=== PATIENT | male | born 1975 | race Caucasian/White ===

== ENCOUNTER 2016-08-05 21:11 | Emergency (ER) | payer OTHER ==
[~2016-08-05] VITALS: Ht 167.6 cm; Wt 77.1 kg
[2016-08-05 21:25] VITALS: BP 132/71; PULSE 90; RESP 18; TEMP 97.4; O2SAT 96
--- NOTE | 2016-08-05 21:52 | NUR ---
Placed in room 05 . Placed on icu rn, blood pressure machine and pulse oximeter. To gown for exam. Side rails up. Report given to CYNTHIA Ervin.
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
--- NOTE | 2016-08-05 22:17 | NUR ---
ER MARISOL Quach at bedside for evaluation
[2016-08-05] MEDS ORDERED: CYCLOBENZAPRINE HCL 10 MG TABLET (FLEXERIL) PO ONE (22:30)
[2016-08-05] MEDS ORDERED: KETOROLAC TROMETHAMINE 60 MG/2 ML VIAL IM ONE (22:30)
--- NOTE | 2016-08-05 22:41 | NUR ---
Patient off the unit for CT scan via wheelchair
[2016-08-05] MEDS ORDERED: HYDROmorphone 1 MG INJ. 1 MG/ML AMPUL IM ONE (23:15)
[2016-08-05] MEDS ORDERED: DIPHENHYDRAMINE INJ 50 MG/ML VIAL IM ONE (23:15)
--- NOTE | 2016-08-05 23:39 | NUR ---
Patient C/O persisting pain 01/08 and tension upper back & shoulders.
--- NOTE | 2016-08-06 00:09 | NUR ---
Patient states that he feels much better, decrease in muscle tension" Patient educated on home care.
[2016-08-06 00:25] VITALS: BP 122/71; PULSE 82; RESP 17; TEMP 98.1; O2SAT 96
--- NOTE | 2016-08-06 00:25 | NUR ---
Patient given written and verbal discharge instructions and verbalizes understanding. ER MANAGER RN CASE Philomena discussed with patient the results and treatment provided. Patient in stable condition. ID arm band removed. Rx of tramadol, motrin, flexeril given. Patient educated on pain management and to follow up with PMD. Pain Scale 0/10. Opportunity for questions provided and answered.
== END 2016-08-06 00:25 | disposition home or self-care (01) ==
LOC: SED 21:11
DX: S16.1XXA Strain of muscle, fascia and tendon at neck level, initial encounter (principal); I10 Essential (primary) hypertension; E11.9 Type 2 diabetes mellitus without complications; E78.5 Hyperlipidemia, unspecified; I25.2 Old myocardial infarction; Z90.49 Acquired absence of other specified parts of digestive tract; Z98.890 Other specified postprocedural states; Z95.1 Presence of aortocoronary bypass graft; V89.2XXA Person injured in unspecified motor-vehicle accident, traffic, initial encounter; Y93.89 Activity, other specified; Y99.8 Other external cause status; Y92.89 Other specified places as the place of occurrence of the external cause
CPT/HCPCS: 70450; 72125; 96372; 99284; J1170; J1200; J1885